=== PATIENT | female | born 1955 | race Asian ===

== ENCOUNTER 2022-12-04 08:01 | Emergency (ER) | payer MEDICARE, MEDICAID ==
[~2022-12-04] VITALS: Ht 149.9 cm; Wt 54.5 kg
[2022-12-04] MEDS ORDERED: ATEN-72 PO (08:06)
[2022-12-04] MEDS ORDERED: PRAV20TA4 PO (08:06)
[2022-12-04] MEDS ORDERED: HYDR-4870 PO (08:06)
[2022-12-04] MEDS ORDERED: METF-81 PO (08:06)
[2022-12-04] MEDS ORDERED: ASPI-1450 PO (08:06)
[2022-12-04] MEDS ORDERED: PERTUSS(ACELL),DIPH,TET VAC/PF 0.5 ML SYRINGE IM. ONE (09:00)
[2022-12-04] MEDS ORDERED: RABIES IMMUNE GLOBULIN/PF 300 UNIT/ML VIAL IM. ONE (09:00)
[2022-12-04] MEDS ORDERED: RABIES VACCINE, HUMAN DIPLOID/PF 2.5 UNITS/ML VIAL IM. ONE (09:00)
[2022-12-04] MEDS ORDERED: RABIES IMMUNE GLOBULIN/PF 300 UNITS/ML 5 ML VIAL IM. ONE (09:30)
[2022-12-04 11:00] VITALS: BP 155/83
[2022-12-04] MEDS ORDERED: AMOX1TAB16 PO (11:38)
== END 2022-12-04 11:50 | disposition home or self-care (01) ==
LOC: EMS 08:03
DX: S41.151A Open bite of right upper arm, initial encounter (principal); E11.9 Type 2 diabetes mellitus without complications; E78.00 Pure hypercholesterolemia, unspecified; I10 Essential (primary) hypertension; Z23 Encounter for immunization; W54.0XXA Bitten by dog, initial encounter; Y93.89 Activity, other specified; Y92.89 Other specified places as the place of occurrence of the external cause; Y99.8 Other external cause status
CPT/HCPCS: 90375; 90471; 90675; 90715; 99284; Q9967

== ENCOUNTER 2022-12-06 07:45 | Emergency (ER) | payer MEDICARE, MEDICAID ==
[~2022-12-06] VITALS: Ht 149.9 cm; Wt 54.5 kg
[~2022-12-06 07:45] MED LIST: AMOX1TAB16 PO; ASPI-1450 PO; ATEN-72 PO; HYDR-4870 PO; METF-81 PO; PRAV20TA4 PO
[2022-12-06] MEDS ORDERED: RABIES VACCINE, HUMAN DIPLOID/PF 2.5 UNITS/ML VIAL IM. ONE (08:15)
[2022-12-06 08:18] VITALS: BP 145/69
== END 2022-12-06 09:17 | disposition home or self-care (01) ==
LOC: EMS 07:51
DX: S41.151D Open bite of right upper arm, subsequent encounter (principal); E11.9 Type 2 diabetes mellitus without complications; E78.00 Pure hypercholesterolemia, unspecified; I10 Essential (primary) hypertension; Z23 Encounter for immunization; W54.0XXD Bitten by dog, subsequent encounter
CPT/HCPCS: 90675; 99281

== ENCOUNTER 2022-12-11 07:33 | Emergency (ER) | payer MEDICARE, MEDICAID ==
[~2022-12-11] VITALS: Ht 149.9 cm; Wt 54.5 kg
[2022-12-11] MEDS ORDERED: RABIES VACCINE, HUMAN DIPLOID/PF 2.5 UNITS/ML VIAL IM. ONE (08:00)
[2022-12-11 08:15] VITALS: BP 144/73
== END 2022-12-11 08:20 | disposition home or self-care (01) ==
LOC: EMS 07:33
DX: S60.511A Abrasion of right hand, initial encounter (principal); E11.9 Type 2 diabetes mellitus without complications; E78.00 Pure hypercholesterolemia, unspecified; I10 Essential (primary) hypertension; Z29.14 Encounter for prophylactic rabies immune globulin; W54.0XXA Bitten by dog, initial encounter; Y93.89 Activity, other specified; Y92.89 Other specified places as the place of occurrence of the external cause; Y99.8 Other external cause status
CPT/HCPCS: 90471; 90675; 99281; 99283